=== PATIENT | female | born 1985 | race Caucasian/White ===

== ENCOUNTER 2020-03-03 13:55 | Emergency (ER) | payer SELFPAY ==
--- NOTE | 2020-03-03 15:07 | ULT ---
Exam:Rightlower extremity venous ultrasound with Doppler HISTORY: Rightlower extremity swelling and pain COMPARISON: None TECHNIQUE: Grayscale, color flow, Doppler imaging and spectral wave muscle performed right lower extr emity venous system FINDINGS: There is compressibility, presence of flow and augmentation in the common femoral vein, femoral vein and popliteal vein. There is flow in the posterior tibial vein. There is flow in the greater saphenous vein and profunda femoral vein IMPRESSION: No thrombus in the right lower extremity deep venous system.
== END 2020-03-03 16:11 | disposition home or self-care (01) ==
LOC: ERS 13:55
DX: I87.8 Other specified disorders of veins (principal); K04.7 Periapical abscess without sinus; F31.9 Bipolar disorder, unspecified; F17.210 Nicotine dependence, cigarettes, uncomplicated; Z79.899 Other long term (current) drug therapy
CPT/HCPCS: 36415; 85379